=== PATIENT | female | born 1995 | race African-American/Black ===

== ENCOUNTER 2018-07-15 05:37 | Emergency (ER) | payer OTHER ==
[2018-07-15] MEDS ORDERED: IPRATROPIUM/ALBUTEROL 3 ML NEB INH STA (07:02)
[2018-07-15] MEDS ORDERED: DEXAMETHASONE 10 MG/ML VIAL PO STA (07:12)
--- NOTE | 2018-07-15 07:12 | ED Physician Documentation ---
PD HPI DYSPNEA - Stated complaint Stated Complaint: DIFF BREATHING - Chief complaint Chief Complaint: Resp - History obtained from History obtained from: Patient, Friend - History of Present Illness Timing - onset: How many weeks ago (1) Timing - onset during: Rest Timing - duration: Weeks (1) Timing - details: Gradual onset, Still present Inciting event(s): URI Improved by: Inhaler/neb, Rest Worsened by: Exertion, Coughing Associated symptoms: Cough, Wheezing, Chest pain / discomfort. No: Bilateral edema, Unilateral edema Similar symptoms before: Diagnosis (bronchitis and asthma) Recently seen: Not recently seen - Additional information Additional information: 22-year-old asthmatic female previously from [place] has moved to [facility] and she is developed a cough and congestion over the past week and now is significantly dyspneic. She does have 2 inhalers that she uses uses some albuterol and she uses a steroid inhaler. She is a daily user of the steroid inhaler. She has had use her rescue inhaler more than 4 times per day. She has some central chest pain with each breath. Review of Systems Constitutional: denies: Fever Eyes: denies: Decreased vision Ears: denies: Ear pain Nose: reports: Rhinorrhea / runny nose, Congestion Throat: denies: Sore throat Cardiac: reports: Chest pain / pressure. 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 : None HEENT: None Psych: None Musculoskeletal: None Derm: None - Past Surgical History Past Surgical History: Yes HEENT: Tonsil/Adenoidectomy - Present Medications Home Medications: Ambulatory Orders Medication Instructions Recorded Confirmed Albuterol Sulf [Ventolin Hfa 1 - 2 puffs INH Q4HR PRN #1 inhaler 07/15/18 Inhaler] Azithromycin [Zithromax] 250 mg PO DAILY #6 tablet 07/15/18 predniSONE [Deltasone] 10 mg PO DAILY #26 tablet 07/15/18 - Allergies Allergies/Adverse Reactions: Allergies Allergy/AdvReac Type Severity Reaction Status Date / Time diphenhydramine Allergy Anaphylaxis Verified 07/15/18 05:46 [From Benadryl] - Social History Does the pt smoke?: No Smoking Status: Former smoker Does the pt drink ETOH?: No Does the pt have substance abuse?: No - Immunizations Immunizations are current?: Yes PD ED PE NORMAL - Vitals Vital signs reviewed: Yes (hypertensive ) - General General: Alert and oriented X 3, Well developed/nourished, Other (22 y/o female leaning forward dyspenic at rest and coughing phlem into an emesis bag) - HEENT HEENT: Atraumatic, PERRL, EOMI, Other (left TM is flush with rounding of the landmarks and the right is clear but with tympanosclerosis) - Neck Neck: Supple, no meningeal sign, No bony TTP - Cardiac Cardiac: RRR, No murmur - Respiratory Respiratory: Other (tachypneic at rest with inspritory/expritory wheezes throughout) - Abdomen Abdomen: Soft, Non tender - Back Back: No CVA TTP, No spinal TTP - Derm Derm: Normal color, Warm and dry, No rash - Extremities Extremities: No deformity, No edema - Neuro Neuro: Alert and oriented X 3, oil separator 2-12 intact, No motor deficit, No sensory deficit, Normal speech Eye Opening: Spontaneous Motor: Obeys Commands Verbal: Oriented GCS Score: 15 - Psych Psych: Normal mood, Normal affect Results - Vitals Vitals: Vital Signs - 24 hr 07/15/18 07/15/18 07/15/18 05:46 07:09 08:18 Temperature 36.8 C Heart Rate 88 85 74 Respiratory 20 20 18 Rate Blood Pressure 157/103 H O2 Saturation 98 07/15/18 08:26 Temperature Heart Rate 89 Respiratory 22 Rate Blood Pressure 141/100 H O2 Saturation 99 Oxygen O2 Source Room air - EKG (time done) 0553 Rate: Rate (enter#) (79) Rhythm: NSR Ischemia: Normal ST segments Compare to prior EKG: Old EKG unavailable Computer interpretation: Agree with computer - Rads (name of study) CXR 2 view Radiology: Prelim report reviewed (Impression: Patchy posterior basilar pulmonary consolidations and probably in the right lower lobe suspicious for pneumonia or aspiration.), EMP read indepedently, See rad report PD MEDICAL DECISION MAKING - ED course Complexity details: reviewed results, re-evaluated patient, considered differential, d/w patient, d/w family ED course: 22-year-old female with history of asthma has developed acute respiratory distress and she has had a cough productive of copious amounts of sputum. On examination she has left otitis media and on her chest x-ray there is a suspicion of a right posterior infiltrate. She is administered dexamethasone orally and a DuoNeb treatment and requires a second albuterol treatment she has some improvement in her air movement but she develops acute vertigo. She has had this happen to her number times previously. She usually takes meclizine for this. She is administered meclizine and Ativan here in the emergency department and we will be providing some IM Rocephin as well. - Sepsis Event Vital Signs: Vital Signs - 24 hr 07/15/18 07/15/18 07/15/18 05:46 07:09 08:18 Temperature 36.8 C Heart Rate 88 85 74 Respiratory 20 20 18 Rate Blood Pressure 157/103 H O2 Saturation 98 07/15/18 08:26 Temperature Heart Rate 89 Respiratory 22 Rate Blood Pressure 141/100 H O2 Saturation 99 Oxygen O2 Source Room air Departure - Departure Disposition: 01 Home, Self Care Clinical Impression: Pneumonia Qualifiers: Pneumonia type: due to unspecified organism Laterality: left Lung location: lower lobe of lung Qualified Code(s): J18.1 - Lobar pneumonia, unspecified organism Asthma exacerbation Qualifiers: Asthma severity: mild Asthma persistence: intermittent Qualified Code(s): J45.21 - Mild intermittent asthma with (acute) exacerbation Otitis media Qualifiers: Otitis media type: suppurative Chronicity: acute Laterality: left Condition: Stable Instructions: ED Pneumonia Adult, ED Reactive Airway Disease Follow-Up: MARIELA ORTIZ [Physician No Access] - Prescriptions: Albuterol Sulf [Ventolin Hfa Inhaler] 1 - 2 puffs INH Q4HR PRN #1 inhaler PRN Reason: Shortness Of Air/Wheezing Azithromycin [Zithromax] 250 mg PO DAILY #6 tablet predniSONE [Deltasone] 10 mg PO DAILY #26 tablet Forms: Activity restrictions
[2018-07-15] MEDS ORDERED: CHERRY SYRUP 10 ML UDC PO ONE (07:13)
[2018-07-15] MEDS ORDERED: ALBUTEROL NEB 2.5 MG/3 ML INH STA (08:07)
--- NOTE | 2018-07-15 08:07 | XRAY Report ---
Procedure Date: 07/15/2018 Accession Number: [id number] / [id number] Procedure: XR - Chest 2 View X-Ray CPT Code: 89940 FULL RESULT: EXAM: CHEST RADIOGRAPHY EXAM DATE: 07/15/2018 07:34 AM. CLINICAL HISTORY: Productive cough, shortness of breath. COMPARISON: None. TECHNIQUE: 2 views. FINDINGS: Lungs/Pleura: There is patchy opacity at the posterior lung base best seen on the lateral image, probably in the right lower lobe. No pleural effusion. No pneumothorax. Normal volumes. Mediastinum: Heart and mediastinal contours are unremarkable. Other: No acute osseous abnormality. IMPRESSION: Patchy posterior basilar pulmonary consolidation, probably in the right lower lobe, suspicious for pneumonia or aspiration. RADIA
[2018-07-15] MEDS ORDERED: LORazepam 0.5 MG TABLET PO STA (08:33)
[2018-07-15] MEDS ORDERED: MECLIZINE 12.5 MG TABLET PO STA (08:34)
[2018-07-15] MEDS ORDERED: LIDOCAINE 1% 2 ML VIAL SUBQ ONE (08:48)
[2018-07-15] MEDS ORDERED: cefTRIAXone 1 GM VIAL IM STA (08:48)
[2018-07-15 09:56] VITALS: BP 155/103
== END 2018-07-15 09:55 | disposition home or self-care (01) ==
LOC: ED 05:37
DX: J18.1 Lobar pneumonia, unspecified organism (principal); R06.03 Acute respiratory distress; J45.21 Mild intermittent asthma with (acute) exacerbation; H66.92 Otitis media, unspecified, left ear; H74.01 Tympanosclerosis, right ear; R42 Dizziness and giddiness; I10 Essential (primary) hypertension; Z87.891 Personal history of nicotine dependence
CPT/HCPCS: 71046; 93005; 94640; 96372; 99283; 99284; A9270

== ENCOUNTER 2018-10-20 12:44 | Emergency (ER) | payer OTHER ==
[2018-10-20] MEDS ORDERED: ALBUTEROL NEB 2.5 MG/3 ML INH STA (13:10)
[2018-10-20] MEDS ORDERED: DEXAMETHASONE 10 MG/ML VIAL PO STA (13:10)
--- NOTE | 2018-10-20 13:18 | ED Physician Documentation ---
History of Present Illness - Stated complaint Stated Complaint: SP/SOA - Chief complaint Chief Complaint: Cardiac - Additonal information Additional information: hx from pt 23 y/o f denies preg hx asthma and pna gma had blood clots but no immediate family members nor pt to ED with head and chest congestion cough wheezing CP SOA using her albuterol at home q4 h s relief no travel sick contacts no leg swelling Review of Systems Constitutional: denies: Fever, Chills Nose: reports: Congestion Throat: denies: Sore throat Cardiac: reports: Chest pain / pressure Respiratory: reports: Dyspnea, Cough, Wheezing GI: denies: Abdominal Pain, Nausea, Vomiting Endocrine: denies: Easy bruising / bleeding Immunocompromised: denies: Immunocompromised PD PAST MEDICAL HISTORY - Past Medical History Cardiovascular: Hypertension Respiratory: Asthma Neuro: None Endocrine/Autoimmune: None GI: None 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 : None HEENT: None Psych: None Musculoskeletal: None Derm: None - Past Surgical History Past Surgical History: Yes HEENT: Tonsil/Adenoidectomy - Present Medications Home Medications: Ambulatory Orders Medication Instructions Recorded Confirmed Albuterol Sulf [Ventolin Hfa 1 - 2 puffs INH Q4HR PRN #1 inhaler 07/15/18 Inhaler] Azithromycin [Zithromax] 250 mg PO DAILY #6 tablet 07/15/18 predniSONE [Deltasone] 10 mg PO DAILY #26 tablet 07/15/18 Benzonatate [Tessalon Perle] 100 mg PO TID PRN #20 capsule 10/20/18 guaiFENesin/DEXTROMETHORPHAN 10 ml PO Q6H PRN #120 ml 10/20/18 [Robitussin Dm] predniSONE [Deltasone] 60 mg PO DAILY 5 Days #15 tablet 10/20/18 - Allergies Allergies/Adverse Reactions: Allergies Allergy/AdvReac Type Severity Reaction Status Date / Time banana Allergy Anaphylaxis Verified 10/20/18 12:53 bee venom protein (honey bee) Allergy Anaphylaxis Verified 10/20/18 12:53 diphenhydramine Allergy Anaphylaxis Verified 07/15/18 05:46 [From Benadryl] - Social History Does the pt smoke?: No Smoking Status: Former smoker Does the pt drink ETOH?: No Does the pt have substance abuse?: No - Immunizations Immunizations are current?: Yes PD ED PE NORMAL - Vitals Vital signs reviewed: Yes - General General: Alert and oriented X 3 - Neck Neck: Supple, no meningeal sign - Cardiac Cardiac: RRR - Respiratory Respiratory: Other (yluiet ronchi and wheeze) - Derm Derm: Normal color - Extremities Extremities: No edema, No calf tenderness / cord - Neuro Neuro: Alert and oriented X 3 Results - Vitals Vitals: Vital Signs - 24 hr 10/20/18 10/20/18 10/20/18 12:49 13:15 14:25 Temperature 98.3 C H Heart Rate 80 91 97 Respiratory 22 22 16 Rate Blood Pressure 123/106 H 132/93 H O2 Saturation 99 99 Oxygen O2 Source Room air - EKG (time done) 1256 Rate: Rate (enter#) (122) Rhythm: Sinus tachycardia, NSR [place]: Normal Intervals: Normal ME QRS: Normal Ischemia: ST elevation c/w repol Other comments: Other comments (no S1 Q3 RBBB RAD) - Rads (name of study) CXR Radiology: See rad report (NACPD) PD MEDICAL DECISION MAKING - ED course ED course: muhc better after nebs and steroids no wheeze on rpt exam, moving air well, feels better Departure - Departure Disposition: 01 Home, Self Care Clinical Impression: Asthma exacerbation Qualifiers: Asthma severity: unspecified severity Asthma persistence: unspecified Qualified Code(s): J45.901 - Unspecified asthma with (acute) exacerbation URI (upper respiratory infection) Qualifiers: URI type: unspecified viral URI Qualified Code(s): J06.9 - Acute upper respiratory infection, unspecified Condition: Good Instructions: Asthma, ED Upper Resp Infec No Abx Tx, ED Inhaler Use Prescriptions: Benzonatate [Tessalon Perle] 100 mg PO TID PRN #20 capsule PRN Reason: Cough guaiFENesin/DEXTROMETHORPHAN [Robitussin Dm] 10 ml PO Q6H PRN #120 ml PRN Reason: Cough predniSONE [Deltasone] 60 mg PO DAILY 5 Days #15 tablet Comments: The xray does not show any pneumonia So you do not need antibiotics But I did prescribe 5 days of steroids to decrease airway inflammation as well as cough medication You should still use your inhaler (with the spacer) every 4 hr for the next 5 days Follow up with your PMD next week. Return if worse Forms: Activity restrictions Discharge Date/Time: 10/20/18 14:57
--- NOTE | 2018-10-20 14:15 | XRAY Report ---
Reason: soa Procedure Date: 10/20/2018 Accession Number: [id number] / [id number] Procedure: XR - Chest 2 View X-Ray CPT Code: 39880 FULL RESULT: EXAM: CHEST RADIOGRAPHY EXAM DATE: 10/20/2018 02:01 PM. CLINICAL HISTORY: Asthma. Shortness of breath. COMPARISON: CHEST 2 VIEW 07/15/2018 7:21 AM. TECHNIQUE: 2 views. FINDINGS: Cardiac leads overlie the chest. Heart size is normal. No consolidation, pleural effusion, or pneumothorax. IMPRESSION: Normal 2-view chest radiography. RADIA
[2018-10-20 14:26] VITALS: BP 132/93
== END 2018-10-20 14:57 | disposition home or self-care (01) ==
LOC: ED 12:44
DX: J45.901 Unspecified asthma with (acute) exacerbation (principal); J06.9 Acute upper respiratory infection, unspecified; R00.0 Tachycardia, unspecified; I10 Essential (primary) hypertension; Z87.891 Personal history of nicotine dependence
CPT/HCPCS: 71046; 93005; 94150; 94640; 94664; 99283

== ENCOUNTER 2019-09-26 18:52 | Emergency (ER) | payer SELFPAY ==
[2019-09-26 19:16] LABS: BILIRUBIN,URINE NEGATIVE (NEGATIVE); GLUCOSE, URINE (UA) NEGATIVE (NEGATIVE); KETONES,URINE (UA) NEGATIVE (NEGATIVE); LEUKOCYTE ESTERASE, URINE NEGATIVE (NEGATIVE); NITRITE,URINE NEGATIVE (NEGATIVE); OCCULT BLOOD,URINE NEGATIVE (NEGATIVE); PROTEIN,URINE NEGATIVE (NEGATIVE); UROBILINOGEN,URINE 0.2 (NORMAL) E.U./dL (NORMAL)
[2019-09-26 19:19] LABS: CLARITY,URINE CLEAR (CLEAR); HCG UR QUAL NEGATIVE
--- NOTE | 2019-09-26 20:32 | ED Physician Documentation ---
PD HPI NVD - Stated complaint Stated Complaint: NAUSEA, HEADACHE, FATIGUE, SENSITIVE TO SMELLS - Chief complaint Chief Complaint: General - History obtained from History obtained from: Patient - History of Present Illness Timing - onset: How many months ago Timing - duration: Months (2) Timing - details: Gradual onset Associated symptoms: Fever (Last week associated with cold symptoms), Abdominal pain (Lower abdominal cramping and bloating), Dizzy, Near syncope / syncope. No: Dysuria, Hematuria, Vaginal bleeding Recently seen: Not recently seen - Additonal information Additional information: Is a 24-year-old woman who is not been feeling well for the past couple of months with "stomach issues". She keeps feeling kind of crampy and bloating like she can start her. But then she does not start.. She had a couple tests at home that she feels she had difficulty interpreting is it look like someone just colored on the stick. Her last normal period was in May. She did not have a menstrual cycle in June and then in July she had a little bit of bleeding she has not started her period yet this time. She does not use control. She denies any vaginal bleeding. She is felt dizzy and had some vomiting but has not passed out. She denies shortness of breath or palpitations. Denies dysuria. She had a fever last week associated with some cold symptoms that have improved.She is never been before. 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 Review of Systems Constitutional: reports: Fever (Resolved), Fatigue Nose: reports: Congestion Throat: reports: Sore throat Cardiac: denies: Palpitations Respiratory: reports: Cough GI: reports: Abdominal Pain, Vomiting. denies: Nausea, Diarrhea : reports: Irregular menses, Missed period. denies: Dysuria, Vaginal bleeding, Control Neurologic: reports: Other (Fatigue). 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 : None HEENT: None Psych: None Musculoskeletal: None Derm: None - Past Surgical History Past Surgical History: Yes HEENT: Tonsil/Adenoidectomy - Present Medications Home Medications: Ambulatory Orders Medication Instructions Recorded Confirmed Albuterol Sulf [Ventolin Hfa 1 - 2 puffs INH Q4HR PRN #1 inhaler 07/15/18 Inhaler] Azithromycin [Zithromax] 250 mg PO DAILY #6 tablet 07/15/18 predniSONE [Deltasone] 10 mg PO DAILY #26 tablet 07/15/18 Benzonatate [Tessalon Perle] 100 mg PO TID PRN #20 capsule 10/20/18 guaiFENesin/DEXTROMETHORPHAN 10 ml PO Q6H PRN #120 ml 10/20/18 [Robitussin Dm] predniSONE [Deltasone] 60 mg PO DAILY 5 Days #15 tablet 10/20/18 - Allergies Allergies/Adverse Reactions: Allergies Allergy/AdvReac Type Severity Reaction Status Date / Time banana Allergy Anaphylaxis Verified 10/20/18 12:53 bee venom protein (honey bee) Allergy Anaphylaxis Verified 10/20/18 12:53 diphenhydramine Allergy Anaphylaxis Verified 07/15/18 05:46 [From Benadryl] - Social History Does the pt smoke?: No Smoking Status: Never smoker Does the pt drink ETOH?: No Does the pt have substance abuse?: No - Immunizations Immunizations are current?: Yes - POLST Patient has POLST: No PD ED PE NORMAL - Vitals Vital signs reviewed: Yes - General General: Alert and oriented X 3, No acute distress, Well developed/nourished - HEENT HEENT: Atraumatic, PERRL, Moist mucous membranes - Neck Neck: No adenopathy, Thyroid normal - Cardiac Cardiac: RRR, No murmur, Strong equal pulses - Respiratory Respiratory: No respiratory distress, Clear bilaterally - Abdomen Abdomen: Normal bowel sounds, Soft, Non tender, Non distended, No organomegaly - Female Female : Deferred - Extremities Extremities: No edema - Neuro Neuro: Alert and oriented X 3, No motor deficit, No sensory deficit, Normal s peech - Psych Psych: Normal mood, Normal affect Results - Vitals Vitals: Vital Signs - 24 hr 09/26/19 09/26/19 09/26/19 18:55 20:32 21:26 Temperature 37.1 C Heart Rate 97 Respiratory 16 16 16 Rate Blood Pressure 148/100 H O2 Saturation 99 09/26/19 21:30 Temperature Heart Rate 75 Respiratory 16 Rate Blood Pressure 137/96 H O2 Saturation 100 Oxygen O2 Source Room air - Labs Labs: Laboratory Tests 09/26/19 09/26/19 09/26/19 19:07 20:55 20:55 WBC 11.2 H RBC 5.76 H Hgb 13.0 Hct 41.6 MCV 72.2 L MCH 22.6 L MCHC 31.3 L RDW 15.4 H Plt Count 208 Neut # (Auto) 6.8 H Lymph # (Auto) 3.3 [place] # (Auto) 0.7 Eos # (Auto) 0.3 Baso # (Auto) 0.1 Absolute Nucleated RBC 0.00 Nucleated RBC % 0.0 Serum HCG, Qual NEGATIVE Urine Color YELLOW Urine Clarity CLEAR Urine pH 6.0 Ur Specific [place] 1.025 Urine Protein NEGATIVE Urine Glucose (UA) NEGATIVE Urine Ketones NEGATIVE Urine Occult Blood NEGATIVE Urine Nitrite NEGATIVE Urine Bilirubin NEGATIVE Urine Urobilinogen 0.2 (NORMAL) Ur Leukocyte Esterase NEGATIVE Ur Microscopic Review NOT INDICATED Urine Culture Comments NOT INDICATED Urine HCG, Qual NEGATIVE PD MEDICAL DECISION MAKING - ED course Complexity details: reviewed results, d/w patient ED course: Urinalysis was negative and the urine test was negative. 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 Qualitative hCG was obtained and negative. She is not anemic. She will be given a note that she can return to work with no restrictions. Departure - Departure Disposition: 01 Home, Self Care Clinical Impression: Abdominal cramping Condition: Good Instructions: ED Abdominal Pain Unkn Cause Follow-Up: [facility] [Provider Group] Comments: Your blood test tonight is negative. If you do not start your menstrual cycle in another 2 weeks, I would recheck a test. Follow-up with your primary care provider if you continue to have irregular menses and cramping. I would also pay attention to your diet and whether or not there is something that you are eating that is setting off the discomfort. Forms: Activity restrictions
[2019-09-26 21:14] LABS: BASOPHILS # (AUTO) 0.1 10^3/uL (0.0-0.1); BASOPHILS % (AUTO) 1.1 %; EOSINOPHILS # (AUTO) 0.3 10^3/uL (0.0-0.7); EOSINOPHILS % (AUTO) 2.4 %; LYMPHOCYTES # (AUTO) 3.3 10^3/uL (1.5-3.5); LYMPHOCYTES % (AUTO) 29.7 %; MEAN CORPUSCULAR HEMOGLOBIN 22.6 pg (27.0-31.0); MEAN CORPUSCULAR HGB CONC 31.3 g/dL (32.0-36.0); MEAN CORPUSCULAR VOLUME 72.2 fL (81.0-99.0); MONOCYTES # (AUTO) 0.7 10^3/uL (0.0-1.0); MONOCYTES % (AUTO) 6.2 %; NEUTROPHILS # (AUTO) 6.8 10^3/uL (1.5-6.6); NEUTROPHILS % (AUTO) 60.2 %; PLT - PLATELET COUNT 208 10^3/uL (130-450); RED BLOOD COUNT 5.76 10^6/uL (4.20-5.40); RED CELL DISTRIBUTION WIDTH 15.4 % (12.0-15.0); WHITE BLOOD COUNT 11.2 x10^3/uL (4.8-10.8)
[2019-09-26 21:31] VITALS: BP 137/96
[2019-09-26 22:00] LABS: HCG,QUALITATIVE BLOOD NEGATIVE
== END 2019-09-26 22:15 | disposition home or self-care (01) ==
LOC: ED 18:52
DX: R10.30 Lower abdominal pain, unspecified (principal); Z32.02 Encounter for pregnancy test, result negative; I10 Essential (primary) hypertension
CPT/HCPCS: 36415; 81001; 81003; 81025; 84703; 85025; 87086; 99282; 99283

== ENCOUNTER 2020-12-17 09:20 | Emergency (ER) | payer BC, OTHER ==
[2020-12-17 09:46] LABS: BILIRUBIN,URINE NEGATIVE (NEGATIVE); GLUCOSE, URINE (UA) NEGATIVE (NEGATIVE); KETONES,URINE (UA) NEGATIVE (NEGATIVE); LEUKOCYTE ESTERASE, URINE NEGATIVE (NEGATIVE); NITRITE,URINE NEGATIVE (NEGATIVE); OCCULT BLOOD,URINE NEGATIVE (NEGATIVE); PROTEIN,URINE NEGATIVE (NEGATIVE); UROBILINOGEN,URINE 0.2 (NORMAL) E.U./dL (NORMAL)
[2020-12-17 09:47] LABS: CLARITY,URINE CLEAR (CLEAR)
[2020-12-17 09:53] LABS: BASOPHILS # (AUTO) 0.1 10^3/uL (0.0-0.1); EOSINOPHILS # (AUTO) 0.2 10^3/uL (0.0-0.7); EOSINOPHILS % (AUTO) 1.7 %; HGB - HEMOGLOBIN 14.1 g/dL (12.0-16.0); LYMPHOCYTES # (AUTO) 2.5 10^3/uL (1.5-3.5); LYMPHOCYTES % (AUTO) 22.2 %; MEAN CORPUSCULAR HEMOGLOBIN 22.7 pg (27.0-31.0); MEAN CORPUSCULAR HGB CONC 31.8 g/dL (32.0-36.0); MEAN CORPUSCULAR VOLUME 71.5 fL (81.0-99.0); MEAN PLATELET VOLUME 12.3 fL (7.9-10.8); MONOCYTES # (AUTO) 0.7 10^3/uL (0.0-1.0); MONOCYTES % (AUTO) 6.5 %; NEUTROPHILS # (AUTO) 7.7 10^3/uL (1.5-6.6); NEUTROPHILS % (AUTO) 68.1 %; PLT - PLATELET COUNT 261 10^3/uL (130-450); WHITE BLOOD COUNT 11.3 x10^3/uL (4.8-10.8)
[2020-12-17 10:10] LABS: ALBUMIN 4.4 g/dL (3.2-5.5); ALBUMIN/GLOBULIN RATIO 1.2 (1.0-2.2); BILIRUBIN,TOTAL 0.7 mg/dL (0.2-1.0); CALCIUM 9.5 mg/dL (8.5-10.3); CREATININE 0.7 mg/dL (0.4-1.0); TOTAL PROTEIN 8.2 g/dL (6.7-8.2)
[2020-12-17] MEDS ORDERED: BUTALB/ACETAM/CAFF 50/325/40MG TABLET PO STA (11:25)
[2020-12-17] MEDS ORDERED: METOCLOPRAMIDE 10 MG TABLET PO STA (11:31)
[2020-12-17 11:55] VITALS: BP 128/87
--- NOTE | 2020-12-17 12:16 | ED Physician Documentation ---
History of Present Illness - Stated complaint Stated Complaint: LOGAN,SHAKEY,NAUSEA - Chief complaint Chief Complaint: Abd Pain - History obtained from History obtained from: Patient - History of Present Illness Timing: Today Pain level max: 0 Pain level now: 0 - Additonal information Additional information: Patient is a 25-year-old female who presents to the emergency department with a headache. She states that she took a test last week and it is positive. She states her LMP was about 6 weeks ago. She states that she does have medical history but she is unsure what it is. She thinks she may have migraines. She states that she was given the medication once and she ended up having a seizure in the hospital. She states she believes that medication was insulin but she is unsure. She also states that she has had lumbar punctures for her headache and that those have helped in the past. She states she has not been diagnosed with intracranial hypertension or pseudotumor cerebri however. She states she is currently not on any medications and did not take anything for the headache. She has no vaginal bleeding or discharge. The headache is dull and aching. Gradual onset. Nonradiating. Review of Systems Constitutional: denies: Fever, Chills Cardiac: denies: Chest pain / pressure Respiratory: denies: Cough GI: reports: Nausea, Vomiting. denies: Abdominal Pain, Diarrhea, Hematemesis : reports: Now EGA (6 weeks) Skin: denies: Rash PD PAST MEDICAL HISTORY - Past Medical History Past Medical History: Yes Cardiovascular: Hypertension Respiratory: Asthma Neuro: Migraines Endocrine/Autoimmune: None GI: None [place] WINDER: None : None HEENT: None Psych: None Musculoskeletal: None Derm: None Other Past Medical History: Lupus - Past Surgical History Past Surgical History: Yes HEENT: Tonsil/Adenoidectomy - Present Medications Home Medications: Ambulatory Orders Medication Instructions Recorded Confirmed Butalb/Acetaminophen/Caffeine 1 cap PO Q6H PRN #10 capsule 12/17/20 [Fioricet 50-300-40 mg Capsule] Metoclopramide [Reglan] 10 mg PO Q6H PRN #20 tablet 12/17/20 - Allergies Allergies/Adverse Reactions: Allergies Allergy/AdvReac Type Severity Reaction Status Date / Time banana Allergy Anaphylaxis Verified 12/17/20 09:32 bee venom protein (honey bee) Allergy Anaphylaxis Verified 12/17/20 09:32 diphenhydramine Allergy Anaphylaxis Verified 12/17/20 09:32 [From Benadryl] - Social History Does the pt smoke?: No Smoking Status: Never smoker Does the pt drink ETOH?: No Does the pt have substance abuse?: No Substance Use and Type: Marijuana, CBD oil / Products - Immunizations Immunizations are current?: Yes - POLST Patient has POLST: No PD ED PE NORMAL - Vitals Vital signs reviewed: Yes - General General: Alert and oriented X 3, No acute distress, Well developed/nourished - HEENT HEENT: Atraumatic, PERRL, Moist mucous membranes - Neck Neck: Supple, no meningeal sign - Cardiac Cardiac: RRR, Strong equal pulses - Respiratory Respiratory: No respiratory distress, Clear bilaterally - Abdomen Abdomen: Soft, Non tender, Non distended - Back Back: No CVA TTP, No spinal TTP - Derm Derm: Warm and dry - Extremities Extremities: No edema - Neuro Neuro: Alert and oriented X 3 - Psych Psych: Normal mood, Normal affect Results - Vitals Vitals: Vital Signs - 24 hr 12/17/20 12/17/20 12/17/20 09:29 09:45 11:54 Temperature 36.4 C L Heart Rate 85 87 80 Respiratory 18 16 20 Rate Blood Pressure 150/101 H 147/96 H 128/87 H O2 Saturation 99 100 98 Oxygen O2 Source Room air - Labs Labs: Laboratory Tests 12/17/20 12/17/20 12/17/20 09:35 09:42 09:42 WBC 11.3 H RBC 6.20 H Hgb 14.1 Hct 44.3 MCV 71.5 L MCH 22.7 L MCHC 31.8 L RDW 15.0 Plt Count 261 MPV 12.3 H Neut # (Auto) 7.7 H Lymph # (Auto) 2.5 [place] # (Auto) 0.7 Eos # (Auto) 0.2 Baso # (Auto) 0.1 Absolute Nucleated RBC 0.00 Nucleated RBC % 0.0 Sodium 135 Potassium 3.9 Chloride 102 Carbon Dioxide 22 Anion Gap 11.0 BUN 7 Creatinine 0.7 Estimated GFR (MDRD) 123 Glucose 96 Calcium 9.5 Total Bilirubin 0.7 AST 20 ALT 17 Alkaline Phosphatase 53 Total Protein 8.2 Albumin 4.4 Globulin 3.8 Albumin/Globulin Ratio 1.2 Lipase 28 HCG, Quant Urine Color YELLOW Urine Clarity CLEAR Urine pH 7.0 Ur Specific Blue 1.020 Urine Protein NEGATIVE Urine Glucose (UA) NEGATIVE Urine Ketones NEGATIVE Urine Occult Blood NEGATIVE Urine Nitrite NEGATIVE Urine Bilirubin NEGATIVE Urine Urobilinogen 0.2 (NORMAL) Ur Leukocyte Esterase NEGATIVE Ur Microscopic Review NOT INDICATED Urine Culture Comments NOT INDICATED 12/17/20 09:42 WBC RBC Hgb Hct MCV MCH MCHC RDW Plt Count MPV Neut # (Auto) Lymph # (Auto) [place] # (Auto) Eos # (Auto) Baso # (Auto) Absolute Nucleated RBC Nucleated RBC % Sodium Potassium Chloride Carbon Dioxide Anion Gap BUN Creatinine Estimated GFR (MDRD) Glucose Calcium Total Bilirubin AST ALT Alkaline Phosphatase Total Protein Albumin Globulin Albumin/Globulin Ratio Lipase HCG, Quant 7715.00 Urine Color Urine Clarity Urine pH Ur Specific Blue Urine Protein Urine Glucose (UA) Urine Ketones Urine Occult Blood Urine Nitrite Urine Bilirubin Urine Urobilinogen Ur Leukocyte Esterase Ur Microscopic Review Urine Culture Comments PD MEDICAL DECISION MAKING - ED course Complexity details: reviewed results, considered differential, d/w patient ED course: 25-year-old female presents to the emergency department with nausea and pain today. She also has a headache. The headache is apparently chronic for her. By her history it sounds as if she may have pseudotumor cerebri? She is not currently on any medications. She does not have any papilledema or vision changes currently. [place] to see what she was actually diagnosed with. Patient's headache resolved with Reglan and Fioricet. Her hCG is about 7000. No indication for emergent ultrasound at this time. Patient is feeling much better after the Reglan and tolerating p.o. without difficulty as well. Patient counseled regarding signs and symptoms for which I believe and urgent re- evaluation would be necessary. Patient with good understanding of and agreement to plan and is comfortable going home at this time This document was made in part using voice recognition software. While efforts are made to proofread this document, sound alike and grammatical errors may occur. Departure - Departure Disposition: Home, Self Care Clinical Impression: Qualifiers: Weeks of gestation: less than 8 weeks Qualified Code(s): Z3A.01 - Less than 8 weeks gestation of Headache Qualifiers: Headache type: unspecified Headache chronicity pattern: unspecified pattern Intractability: not intractable Qualified Code(s): R51.9 - Headache, unspecified Condition: Good Instructions: ED Care Follow-Up: BRENDA Colvin [Provider Group] - Within 1 week Prescriptions: Butalb/Acetaminophen/Caffeine [Fioricet 50-300-40 mg Capsule] 1 cap PO Q6H PRN #10 capsule PRN Reason: headache Metoclopramide [Reglan] 10 mg PO Q6H PRN #20 tablet PRN Reason: Nausea / Vomiting Comments: You are today. [place] Your hCG is approximately 7000. You are likely 4 to 6 weeks . Return if you worsen. Discharge Date/Time: 12/17/20 12:23
== END 2020-12-17 12:23 | disposition home or self-care (01) ==
LOC: ED 09:20
DX: O99.891 Other specified diseases and conditions complicating pregnancy (principal); R51.9 Headache, unspecified; O10.011 Pre-existing essential hypertension complicating pregnancy, first trimester; Z3A.01 Less than 8 weeks gestation of pregnancy
CPT/HCPCS: 36415; 80053; 81003; 83690; 84702; 85025; 99283; A9270; 81001; 87086

== ENCOUNTER 2021-02-12 09:16 | Outpatient (CLI) | payer MEDICAID | END 2021-02-12 09:17 | disposition short-term general hospital (02) | LOC: EMS 09:16 | DX: O21.9 Vomiting of pregnancy, unspecified (principal); O99.891 Other specified diseases and conditions complicating pregnancy; R42 Dizziness and giddiness | CPT/HCPCS: A0425; A0429; A0999 ==